=== PATIENT | male | born 1970 | race Two or more races ===

== ENCOUNTER 2019-06-18 11:48 | Emergency (ER) | payer MEDICAID, OTHER ==
[~2019-06-18] VITALS: Ht 165.1 cm; Wt 54.4 kg
[2019-06-18 13:41] VITALS: BP 118/75
== END 2019-06-18 14:16 | disposition home or self-care (01) ==
LOC: ER 11:48
DX: S20.212A Contusion of left front wall of thorax, initial encounter (principal); W19.XXXA Unspecified fall, initial encounter; Y93.89 Activity, other specified; Y92.89 Other specified places as the place of occurrence of the external cause; Y99.8 Other external cause status
CPT/HCPCS: 71101